=== PATIENT | female | born 2000 | race Caucasian/White ===

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

== ENCOUNTER 2019-06-28 14:54 | Outpatient (REF) | payer MEDICAID, SELFPAY ==
[2019-07-01 15:46] LABS: Chlamydia Result Negative; GC Result Negative; Specimen Description URINE
== END 2019-06-28 15:14 ==
LOC: LBN 14:54
PROVIDERS: PCP Nurse Practitioner; Visit Provider Nurse Practitioner Family
DX: Z11.3 Encounter for screening for infections with a predominantly sexual mode of transmission (principal)
CPT/HCPCS: 87491; 87591

== ENCOUNTER 2020-08-18 15:34 | Outpatient (REF) | payer MEDICAID, SELFPAY ==
[2020-08-22 11:54] LABS: Patient Race White; SARS-CoV-2 RNA Undetected (Undetected); SARS-CoV-2 Specimen Source Nasal
== END 2020-08-18 15:54 ==
LOC: NCHCN 15:34
PROVIDERS: PCP Nurse Practitioner; Visit Provider Nurse Practitioner Family
DX: J02.9 Acute pharyngitis, unspecified (principal)
CPT/HCPCS: U0003

== ENCOUNTER 2020-08-28 11:47 | Outpatient (REF) | payer MEDICAID, SELFPAY ==
--- NOTE | 2020-08-28 11:00 | PAPFT_PTH ---
PATIENT: Stephanie Davis LOC: [facility] U#:[id number] AGE/SX: 20/F ROOM: RE08/28/[address]: NAIF Oden : 2000 BED: DIS: 08/28/2020 SPEC #: [id number] RECD: 08/28/20 12:44 STATUS: HANDY REDave #: [id number] JOHN: 08/28/20 11:[address]: Chelsey Min DEPT: [facility] Cytology RECD BY: Pamela Trinidad ENTERED: 08/28/20 12:45 SP TYPE: PAPFT OTHR DR: Lara Lopez Tissues: 1 - CX/ENDOCX FOR PAP SMEARS Procedures: PAP THIN PREP/[facility] Screening Comments: [id number]
[2020-08-31 15:32] LABS: Chlamydia Result Negative (Negative); GC Result Negative (Negative)
== END 2020-08-28 12:07 ==
LOC: LBN 11:47
PROVIDERS: PCP Nurse Practitioner; Visit Provider Nurse Practitioner Family
DX: Z11.3 Encounter for screening for infections with a predominantly sexual mode of transmission (principal); Z12.4 Encounter for screening for malignant neoplasm of cervix
CPT/HCPCS: 87491; 87591; 88142

== ENCOUNTER 2021-10-18 14:32 | Outpatient (REF) | payer MEDICAID, SELFPAY ==
--- NOTE | 2021-10-18 13:40 | PAPFT_PTH ---
PATIENT: Stephanie Davis LOC: [facility] U#:[id number] AGE/SX: 21/F ROOM: RE10/18/[address]: NAIF Oden : 2000 BED: DIS: 10/18/2021 SPEC #: [id number] RECD: 10/18/21 18:12 STATUS: HANDY REQ #: [id number] JOHN: 10/18/21 13:[address]: Chelsey Min DEPT: [facility] Cytology RECD BY: Pamela Trinidad ENTERED: 10/18/21 18:13 SP TYPE: PAPFT OTHR DR: Lara Lopez Tissues: 1 - CX/ENDOCX FOR PAP SMEARS Procedures: PAP THIN PREP/[facility] Screening Comments: [id number]
[2021-10-19 15:11] LABS: Chlamydia Result Negative (Negative); GC Result Negative (Negative)
== END 2021-10-18 14:33 | disposition home or self-care (01) ==
LOC: LBN 14:32
PROVIDERS: PCP Nurse Practitioner; Visit Provider Nurse Practitioner Family
DX: Z11.3 Encounter for screening for infections with a predominantly sexual mode of transmission (principal); Z12.4 Encounter for screening for malignant neoplasm of cervix
CPT/HCPCS: 87491; 87591; 88142

== ENCOUNTER 2022-01-25 02:11 | Outpatient (CLI) | payer MEDICAID, SELFPAY ==
[2022-01-27 11:43] LABS: TB Interpretation Negative (Negative); TB1 Ag minus Nil 0.02 IU/ml; TB2 Ag minus Nil 0.02 IU/mL
== END 2022-01-25 02:12 | disposition home or self-care (01) ==
LOC: LBO 02:11
PROVIDERS: PCP Nurse Practitioner; Visit Provider Nurse Practitioner Family
DX: Z00.00 Encounter for general adult medical examination without abnormal findings (principal); Z11.1 Encounter for screening for respiratory tuberculosis
CPT/HCPCS: 36415; 86480

== ENCOUNTER → 2022-04-05 19:06 | Outpatient (CLI) | payer MEDICAID, SELFPAY ==
--- NOTE | 2022-04-05 | DI.RAD_ITS ---
Exam(s) XR FOOT RT COMPLETE EXAM: XR FOOT RT COMPLETE CLINICAL HISTORY: RT ANKLE PAIN M25.571, SPRAIN W/ FOCAL TENDERNESS IN AREA NAVICULAR BONE. TECHNIQUE: 2D digital imaging was performed of the right foot. Three images were obtained. AP, obl ique and lateral views were obtained. COMPARISON: No exams were available for comparison FINDINGS: BONES: No acute fracture is present. No bony destructive lesion is seen. JOINTS: No dislocation present. SOFT TISSUE: Normal. IMPRESSION: Unremarkable radiographs of the right foot. DATA REPOSITORY: RADIATION DOSE DELIVERED:
== END ==
PROVIDERS: PCP Nurse Practitioner; Visit Provider Family Medicine
DX: S93.401A Sprain of unspecified ligament of right ankle, initial encounter (principal); X58.XXXA Exposure to other specified factors, initial encounter
CPT/HCPCS: 73630

== ENCOUNTER 2022-12-01 14:50 | Outpatient (REF) | payer MEDICAID, SELFPAY ==
[2022-12-03 13:21] LABS: Chlamydia Result Negative (Negative); GC Result Negative (Negative)
== END 2022-12-01 14:51 | disposition home or self-care (01) ==
LOC: LBN 14:50
PROVIDERS: PCP Nurse Practitioner; Visit Provider Obstetrics & Gynecology
DX: Z11.3 Encounter for screening for infections with a predominantly sexual mode of transmission (principal)
CPT/HCPCS: 87491; 87591

== ENCOUNTER 2024-02-06 10:52 | Outpatient (REF) | payer MEDICAID, SELFPAY ==
[2024-02-07 12:24] LABS: Chlamydia Result Negative (Negative); GC Result Negative (Negative)
== END 2024-02-06 10:53 | disposition home or self-care (01) ==
LOC: LBN 10:52
PROVIDERS: Visit Provider Obstetrics & Gynecology
DX: Z11.3 Encounter for screening for infections with a predominantly sexual mode of transmission (principal)
CPT/HCPCS: 87491; 87591

== ENCOUNTER 2024-02-06 10:57 | Outpatient (CLI) | payer MEDICAID, SELFPAY ==
[2024-02-06 20:08] LABS: HIV-1/2 Ag & Ab Screen Negative (Negative)
[2024-02-06 20:22] LABS: HBs Antibody, Qual Positive (See Note); HBs Antibody, Quant 439.4 mIU/mL (See Note); Hepatitis B Core Antibody Negative (Negative); Hepatitis B surface Ag Negative (Negative); Hepatitis C Ab w Rflx HCV PCR Negative (Negative)
[2024-02-07 12:06] LABS: Syphilis Serology (RPR) Negative (Negative)
== END 2024-02-06 10:58 | disposition home or self-care (01) ==
LOC: LBO 10:57
PROVIDERS: Visit Provider Obstetrics & Gynecology
DX: Z11.3 Encounter for screening for infections with a predominantly sexual mode of transmission (principal); Z11.4 Encounter for screening for human immunodeficiency virus [HIV]; Z11.59 Encounter for screening for other viral diseases
CPT/HCPCS: 36415; 86704; 86706; 86803; 87340; 87389; 86592

== ENCOUNTER 2024-03-18 15:13 | Outpatient (REF) | payer MEDICAID, SELFPAY ==
[2024-03-18 15:54] LABS: Abs Immature Grans 0.04 10^3/uL (0.0-0.06); Absolute Basophil Count 0.07 10^3/uL (0.0-0.2); Absolute Eosinophil Count 0.13 10^3/uL (0.0-0.7); Absolute Lymphocyte Count 1.84 10^3/uL (1.2-3.4); Absolute Monocyte Count 0.49 10^3/uL (0.1-0.8); Absolute Neutrophil Count 7.72 10^3/uL (1.2-6.7); Basophils % 0.7 %; Eosinophils % 1.3 %; HCT 39.7 % (36.0-46.0); HGB 13.5 g/dL (11.2-15.7); Immature Grans % 0.4 %; Lymphocytes % 17.9 %; MCV 91 fL (80-95); Monocytes % 4.8 %; Neutrophils % 74.9 %; Platelet Count 376 10^3/uL (130-400); RBC 4.35 10^6/uL (3.93-5.22); RDW-SD 40.2 fL; WBC 10.29 10^3/uL (4.4-10.8)
[2024-03-18 16:20] LABS: Hemoglobin A1C 5.4 % (<5.7)
[2024-03-18 17:40] LABS: ALT 22 U/L (14-59); AST 19 U/L (15-37); Albumin 3.4 g/dL (3.4-5.0); Alkaline Phosphatase 68 U/L (46-116); Anion Gap 11.2 mmol/L (3-11); BUN 8 mg/dL (7-18); Bilirubin, Total 0.48 mg/dL (0.2-1.0); CO2 23.8 mmol/L (21.0-32.0); CREATININE 0.7 mg/dL (0.55-1.02); Calcium 9.1 mg/dL (8.5-10.1); Calculated LDL 176 mg/dL (<100); Chloride 105 mmol/L (98-107); Cholesterol 275 mg/dL (<200); Estimated GFR 123.78 (mL/min/1.73m2); Glucose 98 mg/dL (74-106); HDL Cholesterol 72 mg/dL (40-60); Potassium 4.3 mmol/L (3.5-5.1); Sodium 140 mmol/L (136-145); TSH (W/Ref FT4) 1.03 uIU/mL (0.36-3.74); Total Protein 7.3 g/dL (6.4-8.2); Triglyceride 138 mg/dL (<150)
== END 2024-03-18 15:14 | disposition home or self-care (01) ==
LOC: NCHCN 15:13
PROVIDERS: Visit Provider Nurse Practitioner Family
DX: R25.2 Cramp and spasm (principal); E55.9 Vitamin D deficiency, unspecified; R79.89 Other specified abnormal findings of blood chemistry; F41.8 Other specified anxiety disorders; G47.9 Sleep disorder, unspecified; Z13.220 Encounter for screening for lipoid disorders; Z13.1 Encounter for screening for diabetes mellitus; Z83.3 Family history of diabetes mellitus
CPT/HCPCS: 80053; 80061; 82306; 87491; 87591; 83036; 84443; 85025

== ENCOUNTER 2025-02-12 16:01 | Outpatient (REF) | payer MEDICAID, SELFPAY ==
--- NOTE | 2025-02-12 16:00 | PAPFT_PTH ---
PATIENT: Stephanie Davis LOC: [facility] U#:[id number] AGE/SX: 24/F ROOM: RE02/12/[address]: Tammy Pack MD : 2000 BED: DIS: 02/12/2025 SPEC #: [id number] RECD: 02/12/25 18:04 STATUS: HANDY REDave #: [id number] JOHN: 02/12/25 16:[address]: Tammy Pack DEPT: [facility] Cytology RECD BY: Pamela Trinidad ENTERED: 02/12/25 18:04 SP TYPE: PAPFT OTHR DR: Unknown,Unknown Tissues: 1 - CX/ENDOCX FOR PAP SMEARS Procedures: PAP THIN PREP/[facility] Screening Comments: [id number] (CHLAMYDIA/GC)
[2025-02-13 11:56] LABS: Chlamydia Result Negative (Negative); GC Result Negative (Negative)
== END 2025-02-12 16:02 | disposition home or self-care (01) ==
LOC: LBN 16:01
PROVIDERS: Visit Provider Obstetrics & Gynecology
DX: Z12.4 Encounter for screening for malignant neoplasm of cervix (principal)
CPT/HCPCS: 87491; 87591; 88142

== ENCOUNTER 2025-08-08 09:44 | Outpatient (REF) | payer BC, SELFPAY ==
[2025-08-08 15:00] LABS: Abs Immature Grans 0.02 10^3/uL (0.0-0.06); HCT 39.2 % (36.0-46.0); HGB 13.0 g/dL (11.2-15.7); Immature Grans % 0.2 %; MCH 30.1 pg (27.0-33.0); MCHC 33.2 % (32.0-36.0); MCV 91 fL (80-95); RBC 4.32 10^6/uL (3.93-5.22); RDW 12.0 % (11.7-14.6); RDW-SD 39.8 fL; WBC 9.47 10^3/uL (4.4-10.8)
[2025-08-08 15:19] LABS: Hemoglobin A1C 5.3 % (<5.7)
[2025-08-08 15:40] LABS: ALT 14 U/L (10-49); AST 19 U/L (<34); Albumin 4.3 g/dL (3.4-5.0); Alkaline Phosphatase 64 U/L (46-116); Anion Gap 12.5 mmol/L (3-11); BUN 11 mg/dL (9-23); Bilirubin, Total 0.30 mg/dL (0.2-1.2); CO2 23.5 mmol/L (20.0-31.0); Calcium 9.1 mg/dL (8.3-10.6); Chloride 106 mmol/L (98-107); Cholesterol 245 mg/dL (<200); Glucose 98 mg/dL (74-106); HDL Cholesterol 65 mg/dL (>40); Potassium 4.4 mmol/L (3.5-5.1); Sodium 142 mmol/L (136-145); Total Protein 7.2 g/dL (5.7-8.2)
[2025-08-08 15:47] LABS: RBC Morphology Normal
[2025-08-15 16:21] LABS: 25-Hydroxy D Total 31 ng/mL
== END 2025-08-08 09:45 | disposition home or self-care (01) ==
LOC: NCHCN 09:44
PROVIDERS: PCP Nurse Practitioner Family; Visit Provider Nurse Practitioner Family
DX: Z00.00 Encounter for general adult medical examination without abnormal findings (principal); E78.5 Hyperlipidemia, unspecified; E55.9 Vitamin D deficiency, unspecified; Z13.1 Encounter for screening for diabetes mellitus
CPT/HCPCS: 80053; 80061; 82306; 83036; 85025